=== PATIENT | male | born 1990 | race Caucasian/White ===

== ENCOUNTER → 2020-10-22 | Outpatient (CLI) | payer OTHER ==
--- NOTE | 2020-10-22 13:42 | PFTRPT ---
Height: 75.00 Inches Weight: 200.00 Lbs BSA: 2.19 Diagnosis: DYSPNEA DATE: 10/22/2020 ORDERING PHYSICIAN: Satya Hannah Pre and post bronchodilator studies have excellent technical quality. Forced vital capacity is normal. FEV1 is out of proportion. Obstructive index is therefore reduced. Expiratory limit of the flow-volume loop suggests flow rate limitation. At least some degree of bronchodilator response is identified. Total lung capacity is elevated. Residual volume is in proportion. Diffusing capacity is actually supernormal. No hemoglobin available for correction. Airway resistance and conductance are normal. IMPRESSION: Moderate obstructive ventilatory impairment with bronchodilator response. Please correlate clinically. MTDD
== END ==
LOC: M CARPUL 12:51
DX: R06.02 Shortness of breath (principal)

== ENCOUNTER → 2020-12-11 | Outpatient (CLI) | payer OTHER ==
[~2020-12-11] MED LIST: ADVA115A; METHACHOLINE KIT (J7674) INH ONE; PROAAER10
== END ==
LOC: M CARPUL 12:51
PROVIDERS: ATTEND Physician Assistant
DX: R06.2 Wheezing (principal)
CPT/HCPCS: 94070; J7674

== ENCOUNTER 2021-05-09 10:50 | Emergency (ER) | payer OTHER ==
[~2021-05-09] VITALS: Ht 190.5 cm; Wt 96.4 kg
[2021-05-09 10:51] VITALS: BP 126/72
[2021-05-09] MEDS ORDERED: PROAAER10 (11:36)
[2021-05-09] MEDS ORDERED: ADVA115A (11:36)
--- NOTE | 2021-05-09 14:44 | CR.PDOC ---
General Date of Consultation: May 09, 2021 Consultation REASON FOR CONSULTATION/CHIEF COMPLAINT: Monoclonal antibody administered HISTORY OF PRESENT ILLNESS: 31-year-old an [employer] Presented to the emergency room with cough and cold symptoms including fever chills sore throat cough started from 05/07/2021 [place] and was found to be positive. Today he was having increased cough and chest tightness so presented to the emergency room. In the ED his vitals were stable. His was not hypoxic. His BMI was over 25 so he was deemed to meet the criteria for monoclonal antibody infusion. Patient was agreeable to get the monoclonal antibody. However when I went to see the patient and discussed the indications, recent recommendations with the him again he did not want to the infusion. ALLERGIES: Please see below. HOME MEDICATIONS: Please see below. PAST MEDICAL HISTORY: Asthma PAST SURGICAL HISTORY: Cataract surgery FAMILY HISTORY: Nothing pertinent discussed with the patient. SOCIAL HISTORY: Non-smoker, occasional alcohol use REVIEW OF SYSTEMS: CONSTITUTIONAL: Fever and chills CARDIOVASCULAR: Denies any palpitation or lightheadedness. Has chest tightness. RESPIRATORY: Has cough, wheezing GENITOURINARY: No dysuria frequency or retention MUSCULOSKELETAL: Headache and body aches GASTROINTESTINAL: Denies any abdominal pain nausea vomiting or diarrhea. SKIN: No rash or lesion All 10 review of systems are negative except those mentioned above PHYSICAL EXAMINATION: VITAL SIGNS: Please see below. GENERAL APPEARANCE: Awake alert oriented x3 sitting up in bed in no acute distress HEENT: Normocephalic atraumatic moist mucous membranes anicteric eyes RESPIRATORY: Chest bilateral clear to auscultation no rhonchi and wheezing at this time CARDIOVASCULAR: S1-S2 regular normal rate no rub murmur gallop ABDOMEN: Soft nontender bowel sounds normal EXTREMITIES: No edema NEUROLOGICAL: No focal neuro deficits LABORATORY DATA: Please see below. ASSESSMENT/PLAN: COVID-19 infection No hypoxia. Patient did meet the criteria for Monoclonal antibody infusion having a BMI over 25. Initially agreed to the monoclonal antibody however later on refused. Follow-up with primary care once quarantine is over. Asthma Continue home medications Advair and albuterol as needed Vital Signs/I&O Vital Signs Date Time Temp Pulse Resp B/P (MAP) Pulse Ox O2 Delivery O2 Flow Rate FiO2 05/09/21 10:51 98.4 86 18 126/72 (90) 96 Room Air Allergies Coded Allergies: No Known Allergies (Unverified , 11/23/20) Home Medications Miscellaneous Medications Albuterol Sulfate (Proair Hfa) 8.5 Gm Hfa.aer.ad, (Reported) Fluticasone Propion/Salmeterol (Advair Hfa 115-21 Mcg Inhaler) 12 Gm Hfa.aer.ad, (Reported) Janessa South MD May 09, 2021 14:44
== END 2021-05-09 14:50 | disposition home or self-care (01) ==
LOC: M ED 10:50
DX: U07.1 COVID-19 (principal); Z20.822 Contact with and (suspected) exposure to COVID-19; J45.909 Unspecified asthma, uncomplicated

== ENCOUNTER → 2021-06-28 | Outpatient (REF) ==
[~2021-06-28] MED LIST changes: -METHACHOLINE KIT (J7674) INH ONE
== END ==
LOC: M PLAIMG 12:09
PROVIDERS: ATTEND Internal Medicine
DX: R06.02 Shortness of breath (principal)

== ENCOUNTER → 2021-06-28 | Outpatient (REF) | payer OTHER ==
[2021-06-28 12:15] LABS: SEMEN APPEARANCE OPAQUE (OPAQUE); SEMEN VOLUME 4.8 ml (2.0-5.0)
[2021-06-28 12:16] LABS: SEMEN VISCOSITY LIQUID (LIQUID); SEMEN pH 8.5 (7.0-8.0); SPERM CONCENTRATION 10.2 M/ml (>=15.0); WBC CONCENTRATION <=1 M/ml (<=1 M/ml)
== END ==
LOC: M LAB REF 12:11
PROVIDERS: ATTEND Physician Assistant
DX: N46.9 Male infertility, unspecified (principal)